=== PATIENT | female | born 1955 | race Caucasian/White ===

== ENCOUNTER 2017-08-29 23:01 | Inpatient (IN) | payer OTHER ==
[~2017-08-29] VITALS: Ht 160 cm; Wt 113.0 kg
--- NOTE | ~2017-08-29 | HC ---
[facility] [place] [address] CONSULTATION Name: AKBAR DOMINIQUE Nicho Room #: 202-[facility] IN ..#: [id number] Admission: 08/30/17 Attend Phys: Srinivasa Cochran MD Discharge: 08/31/17 Date of : 53 Report #: [id number] THIS REPORT FOR: //name// CC: FAM unknown Srinivasa Cochran DATE OF SERVICE: 08/30/2017 INDICATION: Chest pain. HISTORY OF PRESENT ILLNESS: This is a 62-year-old female with a history of CAD, hypertension, COPD, presenting with chest pain, dyspnea and difficulty with urination. The patient was recently diagnosed with COPD, on chronic oxygen therapy at 2 liters. Yesterday, she developed chest pains and shortness of breath walking to the bathroom. She had several episodes, relieved with resting. She was admitted to [facility] and noted to have minimally elevated troponin levels. She was subsequently transferred to [facility] for further evaluation. Her initial evaluation showed evidence for a possible urinary tract infection. There is no history of fever, chills, nausea. She reports dyspnea and orthopnea. She did receive Lasix x [address] [facility]. PAST MEDICAL HISTORY: CAD with stent placement at [facility] in 09/2015. Recently diagnosed with COPD, on chronic oxygen therapy. She was recently diagnosed a with uterine mass, possibly cancer and is scheduled to undergo a biopsy at [facility]. History of hypertension, hypercholesterolemia. ALLERGIES: TO CODEINE, HYDROCODONE, TRAMADOL. MEDICATIONS: Include aspirin, Neurontin, Plavix 75 mg, albuterol, prednisone, Advair inhaler. SOCIAL HISTORY: Negative for tobacco use. FAMILY HISTORY: Negative for premature CAD. REVIEW OF SYSTEMS: A full 10-point review of systems performed. Only the pertinent positives and negatives as described in the HPI. PHYSICAL EXAMINATION: VITAL SIGNS: Blood pressure 126/60, heart rate is 110 beats per minute. GENERAL APPEARANCE: An overweight female in no acute respiratory distress. HEAD AND EYES: Normocephalic. Sclerae are anicteric. ENT: Oral mucosa moist. NECK: Supple. [facility] [address] [place] [address] CONSULTATION Name: AKBAR DOMINIQUE Room #: 202-P [facility] IN .R.#: [id number] Admission: 08/30/17 Attend Phys: Srinivasa Cochran MD Discharge: 08/31/17 Date of : 53 Report #: [id number] LUNGS: Diminished breath sounds diffusely. CARDIAC: Distant heart sounds, S1, S2 positive. ABDOMEN: Soft, protuberant. EXTREMITIES: No cyanosis. Trace edema. LABORATORY VALUES: Peak troponin level here is 0.34, creatinine is 1.6. White count is 14.7, hemoglobin is 11.1. ASSESSMENT AND PLAN: 1. Non-ST elevation myocardial infarction, pain free at this time. Given her unstable symptoms, we will most likely need a cardiac catheterization. However, she is complaining of dyspnea, may have heart failure. We will need an echocardiogram. 2. Respiratory failure, chronic obstructive pulmonary disease, on oxygen therapy. May have a component of heart failure, gentle diuresis and check echo. 3. Urinary tract infection, antibiotics and check urine cultures. 4. Uterine mass, presently undergoing an evaluation including biopsy. <ELECTRONICALLY SIGNED> By: Chris Shaffer MD 08/31/17 0800 [id number] [id number] Chris Shaffer MD /nt
--- NOTE | ~2017-08-29 | EKG ---
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
--- NOTE | ~2017-08-29 | EKG ---
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
[2017-08-30] VITALS (11 sets, daily range): BP systolic 88–155; BP diastolic 52–79
[2017-08-30] MEDS ORDERED: ADVAIR HFA 230M12 GM INH (01:23)
[2017-08-30] MEDS ORDERED: ASPIR 8181 MG PO (01:24)
[2017-08-30] MEDS ORDERED: ASTEPRO205.5 MCG/ (01:25)
[2017-08-30] MEDS ORDERED: CYCLOBENZAPRINE5 MG PO (01:26)
[2017-08-30] MEDS ORDERED: NEURONTIN600 MG PO (01:27)
[2017-08-30] MEDS ORDERED: SINGULAIR 10 MG10 M1 PO (01:30)
[2017-08-30] MEDS ORDERED: MS CONTIN15 MG PO (01:33)
[2017-08-30] MEDS ORDERED: NASONEX17 GM NASAL (01:35)
[2017-08-30] MEDS ORDERED: PLAVIX 75 MG TA75 M1 PO (01:35)
[2017-08-30] MEDS ORDERED: PREDNISONE 20 M20 MG PO (01:36)
[2017-08-30] MEDS ORDERED: PROAIR RESPICL90 MCG INH (01:38)
[2017-08-30 03:41] LABS: HEMATOCRIT 34.4 % (37.0-47.0); HEMOGLOBIN 11.1 gm/dL (12.0-15.0); MCH 26.7 pg (26.0-34.0); MCHC 32.3 g/dL (28.0-37.0); MCV 82.6 fL (80.0-100.0); RBC 4.17 mil/uL (4.20-5.00); RDW 15.4 % (10.5-14.5); WBC 14.7 thou/uL (4.0-11.0)
[2017-08-30 03:52] LABS: CALCIUM 8.7 mg/dL (8.5-10.1); CREATININE 1.6 mg/dL (0.6-1.0); POTASSIUM 4.2 mmol/L (3.5-5.1)
[2017-08-30 03:53] LABS: PROTIME 10.5 Seconds (9.3-11.4)
[2017-08-30 08:42] LABS: BE(vivo) 3.3 mmol/L (-2 to +3); HCO3 28.3 mmol/L (22.0-26.0); PCO2 44.9 mmHg (35.0-45.0); PO2 66.3 mmHg (80.0-100.0); pH 7.417 (7.360-7.450); sO2 93.3 % (92.0-98.0)
== END 2017-08-31 01:25 ==
LOC: 2N 23:01
PROVIDERS: Hospitalist; Nurse Practitioner Family
DX: I21.4 Non-ST elevation (NSTEMI) myocardial infarction (principal); J96.90 Respiratory failure, unspecified, unspecified whether with hypoxia or hypercapnia; N39.0 Urinary tract infection, site not specified; J44.9 Chronic obstructive pulmonary disease, unspecified; I25.10 Atherosclerotic heart disease of native coronary artery without angina pectoris; K59.00 Constipation, unspecified; E11.9 Type 2 diabetes mellitus without complications; I10 Essential (primary) hypertension; E78.5 Hyperlipidemia, unspecified; K21.9 Gastro-esophageal reflux disease without esophagitis; Z90.49 Acquired absence of other specified parts of digestive tract; Z85.42 Personal history of malignant neoplasm of other parts of uterus; Z88.6 Allergy status to analgesic agent; Z88.5 Allergy status to narcotic agent; Z82.49 Family history of ischemic heart disease and other diseases of the circulatory system; Z87.891 Personal history of nicotine dependence; Z95.5 Presence of coronary angioplasty implant and graft; Z79.82 Long term (current) use of aspirin; Z79.899 Other long term (current) drug therapy; Z79.51 Long term (current) use of inhaled steroids
CPT/HCPCS: 10797